=== PATIENT | male | born 1955 | race Caucasian/White ===

== ENCOUNTER 2019-01-28 01:44 | Outpatient (CLI) | payer OTHER ==
--- NOTE | 2019-01-28 12:24 | RAD ---
CHEST 2 VIEWS: Date: 01/28/19 HISTORY: Preoperative evaluation. COMPARISON: 11/16/14. FINDINGS: Slight blunting in the left costophrenic angle, which appears old. Heart size is within normal limits . Biapical pleural thickening. No confluent pneumonia, overt edema, or pleural effusion. IMPRESSION: No acute intrathoracic disease. Left costophrenic angle blunting and scarring with mild scattered chr onic changes. No acute intrathoracic disease. POS: C
--- NOTE | 2019-01-29 13:53 | EKG ---
Test Reason : Blood Pressure : / mmHG Vent. Rate : 062 BPM Atrial Rate : 062 BPM P-R Int : 202 ms QRS Dur : 076 ms QT Int : 404 ms P-R-T Axes : 049 051 052 degrees QTc Int : 410 ms Normal sinus rhythm Normal ECG When compared with ECG of 19-APR-2001 12:34, No significant change was found Confirmed by DR. Bryn SANDERS ([id number]) on 01/29/2019 1:53:17 PM Referred By: ADILENE Confirmed By:DR. Bryn SANDERS
== END 2019-01-28 01:45 | disposition home or self-care (01) ==
LOC: LABBT 01:44
PROVIDERS: ATTEND Orthopaedic Surgery
DX: Z01.818 Encounter for other preprocedural examination (principal); M16.7 Other unilateral secondary osteoarthritis of hip
CPT/HCPCS: 71046; 93005; 93010

== ENCOUNTER 2019-01-28 08:00 | Inpatient (IN) | payer OTHER ==
[2019-01-28 08:40] VITALS: BMI 25.8
[2019-01-28 09:54] LABS: Bilirubin Negative (Negative); Blood, Urine Negative (Negative); Clarity CLEAR (Clear); Glucose, Urine (Dipstick) Negative (Negative); Leukocyte Negative (Negative); Nitrite Negative (Negative); Protein, Urine (Dipstick) Negative (Neg-Trace); Specific Gravity, Urine 1.015 (1.002-1.036); Urobilinogen 0.2 mg/dL (0.2-1.0)
[2019-01-28 09:57] LABS: Bacteria/HPF None Seen HPF (None Seen); Hyaline Casts/LPF 0-3 HYALINE CAST LPF (0-3 Hyaline); Pathc Cast-AUWi Flag 0.13 (0-2.49); Squamous Epithelial None Seen HPF (0-3); WBC/HPF 0-3 HPF (0-3)
[2019-01-28 10:08] LABS: Prothrombin Time 13.3 SEC (12.0-14.7)
[2019-01-28 10:10] LABS: #Basophils 0.2 thou/uL (0.0-0.2); #Eosinphils 0.4 thou/uL (0.0-0.7); #Lymphocytes 3.3 thou/uL (1.20-3.40); #Monocytes 0.8 thou/uL (0.11-0.59); %Basophils 1.7 % (0.0-1.0); %Eosinophils 3.8 % (0.0-10.0); %Lymphocytes 34.2 % (21.0-51.0); %Monocytes 8.3 % (0.0-10.0); Hemoglobin 15.2 g/dL (14.0-18.0); Mean Corpuscular HGB CONC 36.2 g/dL (32.0-36.0); Mean Corpuscular Volume 91.3 fL (78.0-98.0); Mean Platelet Volume 7.2 fL (7.4-10.4); Platelet Count 213 thou/uL (130-400); RBC Distribution Width 11.8 % (11.5-14.5); Red Blood Cell (RBC) Count 4.61 mill/uL (4.70-6.10); White Blood Cell (WBC) Count 9.6 thou/uL (4.8-10.8)
[2019-01-28 10:11] LABS: Anion Gap 13 mmol/L (10-20); BUN (Urea Nitrogen) 15 mg/dL (8.4-25.7); Calc. Creatinine Clearance 0 mL/min (70-130); Calcium 9.5 mg/dL (7.8-10.44); Carbon Dioxide 21 mmol/L (23-31); Chloride 108 mmol/L (98-107); Estimated GFR-MDRD Greater than 90; Glucose 96 mg/dL (80-115); Potassium 4.3 mmol/L (3.5-5.1); Sodium 138 mmol/L (136-145)
[2019-02-01] MEDS ORDERED: Tranexamic Acid 1,000 MG/10 ML VIAL ONE ×2 (05:59→09:33)
[2019-02-01] MEDS ORDERED: Sodium Chloride 0.9% 100 ML ONE ×2 (05:59→09:35)
[2019-02-01] MEDS ORDERED: Propofol 1,000 MG/100 ML VIAL IV ONE (06:18)
[2019-02-01] MEDS ORDERED: Lidocaine 1% (PF) 30 ML VIAL ONE (06:28)
[2019-02-01] MEDS ORDERED: Fentanyl 100 MCG/2 ML VIAL ONE ×2 (06:28→07:09)
[2019-02-01] MEDS ORDERED: Midazolam HCl 2 mg/2 ml Vial ONE (06:28)
[2019-02-01] MEDS ORDERED: Bupivacaine HCl 0.5%/Epinephrine 1:200,000/PF 30 ml Vial ONE (07:09)
[2019-02-01] MEDS ORDERED: diphenhydrAMINE 25 MG CAP PO PRN ×2 (07:15→09:39)
[2019-02-01] MEDS ORDERED: Naloxone HCl 0.4 mg/ml Vial IV PRN (07:15)
[2019-02-01] MEDS ORDERED: Zolpidem Tartrate 5 MG TAB PO PRN ×2 (07:15→09:39)
[2019-02-01] MEDS ORDERED: diphenhydrAMINE 50 MG/ML VIAL IM PRN (07:15)
[2019-02-01] MEDS ORDERED: Bupivacaine 0.25% 10 ML VIAL EPIDURAL PRN (07:15)
[2019-02-01] MEDS ORDERED: HYDROcodone/Acetaminophen 5/325 mg Tablet PO PRN (07:15)
[2019-02-01] MEDS ORDERED: diphenhydrAMINE 50 MG/ML VIAL IVP PRN (07:15)
[2019-02-01] MEDS ORDERED: Ondansetron PF 4 MG/2 ML Vial IVP PRN ×2 (07:15→09:39)
[2019-02-01] MEDS ORDERED: Promethazine HCl 25 MG SUPP PR PRN (07:15)
[2019-02-01] MEDS ORDERED: traMADol HCl 50 MG TAB PO PRN ×3 (07:15→09:39)
[2019-02-01] MEDS ORDERED: Promethazine HCl 25 MG/ML VIAL IM PRN ×3 (07:15→09:39)
[2019-02-01] MEDS ORDERED: Naloxone HCl 0.4 mg/ml Vial IVP PRN (07:15)
[2019-02-01] MEDS ORDERED: Hydrocerin (Eucerin) Cream 120 gm Jar TOP PRN (07:15)
[2019-02-01] MEDS ORDERED: PHENYLEPHRINE-NS 100 MCG/ML 10 ML SYRINGE ONE ×2 (07:29→11:27)
[2019-02-01] MEDS ORDERED: Ondansetron HCl/PF 4 MG/2 ML Vial IVP PRN (07:51)
[2019-02-01] MEDS ORDERED: Promethazine HCl 25 MG/ML VIAL SLOW IVP PRN (07:51)
[2019-02-01] MEDS ORDERED: Tranexamic Acid 1,000 MG in Sodium Chloride 0.9% 100 ML IVPB SCH (08:45)
[2019-02-01] MEDS ORDERED: Fentanyl 100 MCG/2 ML VIAL SLOW IVP PRN ×2 (09:39)
[2019-02-01] MEDS ORDERED: HYDROcodone/Acetaminophen 10/325 mg Tablet PO PRN ×2 (09:39)
[2019-02-01] MEDS ORDERED: Acetaminophen 325 MG TAB PO PRN (09:39)
--- NOTE | 2019-02-01 10:00 | RAD ---
RADIOGRAPH LEFT HIP 2 VIEWS: DATE: 02/01/2019. HISTORY: A 63-year-old male with osteoarthrosis of the left hip status post recent surgery. FINDINGS: There is a metallic acetabular cup. There is a metallic femoral head and neck component with stem th at reaches the proximal femoral diaphysis. There is subcutaneous emphysema indicating that the surge ry was recent. IMPRESSION: Recently status post total left hip replacement arthroplasty. POS: [facility]
[2019-02-01] MEDS ORDERED: Aspirin 81 mg Enteric Coated Tablet PO SCH (10:45)
[2019-02-01] MEDS ORDERED: traZODone HCl 50 MG TAB PO PRN (11:18)
[2019-02-01] MEDS ORDERED: Ondansetron PF 4 MG/2 ML Vial ONE (11:27)
[2019-02-01] MEDS ORDERED: PROPOFOL 200 MG/20 ML VIAL ONE (11:27)
--- NOTE | 2019-02-01 11:52 | CON ---
DATE OF CONSULTATION: Consultation to Dr. Nieves. PRIMARY CARE PROVIDER: [facility]. HISTORY OF PRESENT ILLNESS: The patient is status post left total hip replacement. Postoperatively, he denies chest pain, shortness of breath, fever, chills, nausea, or vomiting. PAST MEDICAL HISTORY: Pertinent for hypertension, dyslipidemia, osteoarthritis, anxiety, depression. CURRENT MEDICATIONS: 1. Aspirin 81 mg a day. 2. Ibuprofen 800 mg p.o. q.8 hours p.r.n. 3. Lisinopril 40 mg twice a day. 4. Lipitor 40 mg a day. 5. Trazodone 100 mg at bedtime. 6. Depakote 750 mg p.o. at bedtime. ALLERGIES: TO CODEINE, APPARENTLY CAUSES ANAPHYLAXIS. PAST SURGICAL HISTORY: He has had 9 surgeries on his left knee. The final one was a left total knee replacement. 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 He does not know what the cause of the blockage was, but he states it was not malignant that he knows of. He had a plate put in his left arm after an accident. He has had right hand surgery. He has had bilateral cataract surgery and retinal surgery. FAMILY HISTORY: Grandfather had coronary artery disease. Father of cancer of the brain. Mother of a broken heart 6 years after her . She was miserable as a according to him. 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 Full code status. , next of kin. Smokes half to 1 pack a day. Nonalcohol drinker. REVIEW OF SYSTEMS: GENERAL: No headaches, dizziness or fainting. EYES: No double vision, blurred vision, or flashing light. EARS, NOSE, AND THROAT. He has hearing loss. Wears hearing aids. Has tinnitus. No nose bleeds. No trouble swallowing. CARDIAC: No chest pain, orthopnea, or paroxysmal nocturnal dyspnea. RESPIRATION: No cough, wheezing, or asthma. GASTROINTESTINAL: No nausea, vomiting, abdominal pain, diarrhea, or constipation. MUSCULOSKELETAL: He has diffuse osteoarthritis with aches and pains, but no hot swollen joints. No swelling in his legs. No muscle pain. NEUROLOGICAL: He has had a stroke with some left-sided residual weakness. PSYCHIATRIC: He has anxiety, depression, takes Depakote and trazodone for same. SKIN: Bruises easily. No rash. HEME/LYMPH: No tender or swollen lymph nodes in axilla, inguinal, or cervical area. PHYSICAL EXAMINATION: GENERAL: Alert, cooperative, pleasant gentleman. VITAL SIGNS: Blood pressure 137/66, pulse 62, respirations 20, temperature 97.3. HEAD, EYES, EARS, NOSE, AND THROAT: Revealed pupils are equal, round, and reactive to light with implants. Extraocular movements are intact. Sclerae are white. Tympanic membranes are clear. Nose is clear. He is edentulous in his upper mouth and has dentures. NECK: No jugular venous distention. No adenopathy or thyromegaly. CHEST: Clear to auscultation and percussion. HEART: Had a regular rate and rhythm. First and second heart sounds clear. There are no appreciated murmurs or gallops. ABDOMEN: Soft. Bowel sounds are normal. There is no hepatosplenomegaly. No mass. No rebound. No bruits. EXTREMITIES: Reveal no cyanosis, clubbing, or edema. PULSES: Carotid, radial, femoral, and dorsalis pedis pulses intact. SKIN: Warm and dry with some small ecchymoses on both forearms. HEME/LYMPH: No tender or swollen lymph nodes in the axilla, inguinal, cervical area. NEUROLOGICAL: Cranial nerves 2 through 12 are intact. Deep tendon reflexes are grossly symmetric. Strength is grossly symmetric. He has poor [id number] on his left arm compared to the right. IMAGING STUDIES: His EKG, regular sinus rhythm, normal, done on 01/28/2019, reviewed by me. Chest x-ray, 01/28/2019, no cardiomegaly, CHF, or infiltrate. He does have flattening of the left hemidiaphragm, reviewed by me. LABORATORY DATA: Done 01/28/2018 as an outpatient; CBC, white count 9.6, hemoglobin 15.2, platelet count 213,000. INR is 1.0. Basic metabolic profile is normal, except for chloride of 108 and CO2 of 21. ADMITTING DIAGNOSES: Hypertension, dyslipidemia anxiety and depression, tobacco abuse, status post left total hip replacement. PLAN: Agree with continuing home medicines. The patient is stable at the present time. We will follow with you. Thank you for the consult. Job ID: [id number]
[2019-02-01] MEDS: Ketorolac Tromethamine 30 MG/ML VIAL IVP SCH ×3 (12:19→22:28)
[2019-02-01] MEDS ORDERED: Ketorolac Tromethamine 30 MG/ML VIAL IVP SCH (14:00)
[2019-02-01] MEDS: CEFAZOLIN 2 GM in Premix Bag 1 BAG IVPB SCH ×2 (14:55→21:34)
--- NOTE | 2019-02-01 15:12 | OP ---
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 PROCEDURE PERFORMED: Left total hip arthroplasty. SPINNER CAP FRAME: Darius Jamison PA-C ANESTHESIOLOGIST: Fuentes Mercado. ANESTHESIA: The patient received epidural, TIVA. ESTIMATED BLOOD LOSS: 150 mL. TOURNIQUET TIME: None. IMPLANTS: A Gerald size 52 trident PSL cup with a 36, 10-degree X3 trident poly, a 2.5 Accolade TMZF, and a 36 mm ceramic head. ANTIBIOTICS: Vancomycin 1 g, TXA 1 g, and Ancef 2 g. COMPLICATIONS: None. HISTORY OF PRESENT ILLNESS: Mr. Mathis is a 63-year-old male with multiple years of left hip pain. The patient had a previous history of left total knee arthroplasty. I discussed with the patient the risks and benefits of left total hip arthroplasty to include pain, scar, bleeding, infection, damage to vital structures, decreased range of motion, strength, nonunion, malunion, fracture above or below the stem, blood clot, loss of life or limb. The patient understood the risks and benefits of the procedure and elected to proceed. DESCRIPTION OF PROCEDURE: Time-out was performed designating the patient's left lower extremity as the operative site based on site, consents, and marking. After time-out, the patient's left lower extremity was prepped and draped in sterile fashion, in lateral position with bony prominences well padded. We made an incision down through skin, down the IT band, split the IT band, came down to the gluteus medius and minimus, T'd and excised our capsule, exposed our head. We cut the head, had a short neck cut because the patient has a short neck as well as a dysplastic head, removed the head. We made a recut to get visualization. We then reamed sequentially using fovea as a starting point up to a 52, had a good firm fitted cup. We impacted our [address], well impacted, well fit. We then placed the PSL. We then placed our X3 poly, 6 mm, 10 degree lip. We impacted in position. We then moved back to the neck. The patient was very tight, made a very tight flare of his metaphysis type A. We broached up to 2.5. We placed finally a 2.5, which is otherwise in good length and rotation. No impingement. We placed 2.5. We placed the ceramic and placed our final implant with a ceramic head, reduced in place, ensured that there was no fracture lines, washed, closed the gluteus minimus, gluteus medius with #1, IT band with #1 Quill, 2-0, and glue. The patient will be weightbearing as tolerated, to be followed in-house. Job ID: [id number]
[2019-02-01] MEDS ORDERED: Vancomycin HCl 1 GM in Premix Bag 1 BAG IVPB SCH (18:00)
[2019-02-01] MEDS: Aspirin 81 mg Enteric Coated Tablet PO SCH (20:02)
[2019-02-01] MEDS: Atorvastatin Calcium 40 MG TAB PO SCH (20:02)
[2019-02-01] MEDS: Divalproex Sodium 250 MG (DR) TAB PO SCH (20:03)
[2019-02-01] MEDS: Divalproex Sodium DR 500 MG TAB PO SCH (20:03)
[2019-02-01] MEDS: Lisinopril 20 MG TAB PO SCH (20:04)
[2019-02-01] MEDS: HYDROcodone/Acetaminophen 5/325 mg Tablet PO PRN (22:25)
[2019-02-02] MEDS: fentaNYL Citrate/PF 500 MCG, Bupivacaine 10 ML in Sodium Chloride 0.9% 80 ML EPIDURAL SCH ×2 (03:13→19:59)
[2019-02-02 05:49] LABS: Mean Corpuscular HGB CONC 34.3 g/dL (32.0-36.0); Mean Corpuscular Volume 93.1 fL (78.0-98.0); Mean Platelet Volume 7.2 fL (7.4-10.4); Platelet Count 186 thou/uL (130-400); RBC Distribution Width 11.8 % (11.5-14.5); Red Blood Cell (RBC) Count 3.74 mill/uL (4.70-6.10); White Blood Cell (WBC) Count 10.2 thou/uL (4.8-10.8)
[2019-02-02] MEDS: Ketorolac Tromethamine 30 MG/ML VIAL IVP SCH ×4 (06:23→23:35)
[2019-02-02] MEDS: Multivitamin W/ Minerals 1 TAB PO SCH (08:52)
[2019-02-02] MEDS: Ferrous Gluconate 324 MG TAB PO SCH ×2 (08:52→18:57)
[2019-02-02] MEDS: Senokot S 8.6-50 MG TAB PO SCH ×2 (08:52→20:00)
[2019-02-02] MEDS: Lisinopril 20 MG TAB PO SCH ×2 (08:52→20:06)
[2019-02-02] MEDS: Aspirin 81 mg Enteric Coated Tablet PO SCH ×2 (08:53→20:00)
[2019-02-02] MEDS: HYDROcodone/Acetaminophen 5/325 mg Tablet PO PRN ×3 (08:53→23:37)
[2019-02-02] MEDS ORDERED: Polyethylene Glycol 3350 17 GM Packet PO PRN (10:19)
[2019-02-02] MEDS: Divalproex Sodium DR 500 MG TAB PO SCH (19:59)
[2019-02-02] MEDS: Atorvastatin Calcium 40 MG TAB PO SCH (20:00)
[2019-02-02] MEDS: Divalproex Sodium 250 MG (DR) TAB PO SCH (20:00)
[2019-02-03] MEDS: Ketorolac Tromethamine 30 MG/ML VIAL IVP SCH (05:53)
[2019-02-03 06:12] LABS: Hemoglobin 11.4 g/dL (14.0-18.0); Mean Corpuscular HGB CONC 33.4 g/dL (32.0-36.0); Mean Corpuscular Hemoglobin 31.5 pg (27.0-31.0); Mean Corpuscular Volume 94.4 fL (78.0-98.0); Mean Platelet Volume 7.3 fL (7.4-10.4); Platelet Count 181 thou/uL (130-400); Red Blood Cell (RBC) Count 3.62 mill/uL (4.70-6.10); White Blood Cell (WBC) Count 11.7 thou/uL (4.8-10.8)
[2019-02-03] MEDS: Multivitamin W/ Minerals 1 TAB PO SCH (08:53)
[2019-02-03] MEDS: Aspirin 81 mg Enteric Coated Tablet PO SCH (08:53)
[2019-02-03] MEDS: Senokot S 8.6-50 MG TAB PO SCH (08:53)
[2019-02-03] MEDS: Lisinopril 20 MG TAB PO SCH (08:53)
[2019-02-03] MEDS: HYDROcodone/Acetaminophen 5/325 mg Tablet PO PRN (08:54)
[2019-02-03] MEDS: Ferrous Gluconate 324 MG TAB PO SCH (08:57)
[2019-02-03] MEDS ORDERED: HYDROcodone/Acetaminophen 10/325 mg Tablet PO PRN ×2 (09:17)
--- NOTE | 2019-02-03 10:05 | HP ---
HISTORY OF PRESENT ILLNESS: Mr. Mathis is a pleasant 63-year-old male, who presented with severe pain of greater than six years left hip pain and history of a left knee total knee arthroplasty in 2005. The patient has therapy, injections and had not brought relief. 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 He had a trip planned which he has returned from. The patient desires to get back to work as quick as possible. The patient's pain is localized in his groin, be 10/10 at times. PAST MEDICAL HISTORY: Anemia, seasonal allergies, high cholesterol, chronic pain, depression, headaches, high blood pressure, and stroke. PAST SURGICAL HISTORY: Left knee in 1986, left knee is 1983 unspecified, left lung surgery unspecified. MEDICATIONS: The patient's medications include; 1. Aspirin. 2. Atorvastatin. 3. Depakote. 4. Ibuprofen. 5. Lisinopril. 6. Trazodone. ALLERGIES: THE PATIENT'S ALLERGIES INCLUDE CODEINE, WHICH CAUSES SWELLING. NO ANAPHYLAXIS PER REPORT. SOCIAL HISTORY: The patient denies alcohol. Occasional smoker. No current drug use. 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 PHYSICAL EXAMINATION: VITAL SIGNS: The patient's vital signs, afebrile. GENERAL: Alert and oriented, in no acute distress, resting comfortably in bed. EXTREMITIES: The patient is neurovascularly intact to left lower extremity. Pain with internal and external rotation of hip and shortening. 2+ DP and PT pulses. LABORATORY DATA: The patient is B positive. Creatinine is 0.79. Negative UA. 15 and 42 for his H and H. INR 1. 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 secondary osteoarthritis. ASSESSMENT AND PLAN: The patient will be taken to surgery for left total hip arthroplasty. I discussed with the patient risks and benefits of surgery, pain, scar, bleeding, infection, damage to vital structures, decrease in his strength, shortening, rotational deformity, need for further surgeries, loss of life or limb. The patient understood the risks and benefits and elected to proceed. He will be taken back to the operating room. With the family history of malignant hyperthermia, the patient will be treated accordingly. Job ID: [id number] [facility]
--- NOTE | 2019-02-03 11:25 | PDOC.PN ---
- Subjective Encounter Start Date: 02/03/19 Encounter Start Time: 11:23 Patient seen and examined for med mngt. No CP/SOB. Pain controlled. No new complaints. No overnight events - Objective MAR Reviewed: Yes Vital Signs & Weight: Vital Signs (12 hours) Temp Pulse Resp BP BP Pulse Ox 02/03/19 08:53 110/70 02/03/19 08:20 98.5 F 96 14 112/72 91 L 02/03/19 04:07 98.3 F 74 18 116/70 97 02/03/19 00:27 99 F 106 H 16 106/67 95 02/02/19 23:30 100.3 F H 113 H 16 104/66 92 L Weight Admit Weight 165 lb Weight 165 lb I&O: 02/02/19 02/03/19 02/04/19 06:59 06:59 06:59 Intake Total 2110 Output Total 150 2375 Balance -150 -265 Result Diagrams: 02/03/19 04:53 01/28/19 09:31 EKG Reviewed by me: Yes (SR) Phys Exam - Physical Examination Constitutional: NAD Respiratory: no wheezing, no rhonchi Cardiovascular: RRR, no rub Gastrointestinal: soft, non-tender, positive bowel sounds Musculoskeletal: no edema Neurological: moves all 4 limbs Dx/Plan - Plan DVT proph w/SCDs IMPRESSION: HTN HLD Anxiety Depression - mild - stable Tobacco dep Codeine allergy DJD PLAN: Cont Lisinopril Cont Statins Counselled to quit smoking Cont other meds as below Review of Systems - Review of Systems Respiratory: negative: Cough, Dry, Shortness of Breath, Hemoptysis, SOB with Excertion, Pleuritic Pain, Sputum, Wheezing Cardiovascular: negative: chest pain, palpitations, orthopnea, paroxysmal nocturnal dyspnea, edema, light headedness, other - Medications/Allergies Allergies/Adverse Reactions: Allergies Allergy/AdvReac Type Severity Reaction Status Date / Time codeine Allergy Severe Verified 02/01/19 17:39 Medications: Current Medications Acetaminophen (Tylenol) 650 mg PO Q4H PRN PRN Reason: Headache/Fever or Pain Hydrocodone Bitart/Acetaminophen (Mobridge 10/325) 1 tab PO Q4H PRN PRN Reason: Pain (2-4) Hydrocodone Bitart/Acetaminophen (Mobridge 10/325) 2 tab PO Q4H PRN PRN Reason: Pain (5-10) Aspirin (Ecotrin) 81 mg PO BID [facility] Last Admin: 02/03/19 08:53 Dose: 81 mg Atorvastatin Calcium (Lipitor) 40 mg PO [facility] Last Admin: 02/02/19 20:00 Dose: 40 mg Diphenhydramine HCl (Benadryl) 25 mg PO Q3H PRN PRN Reason: Itching Diphenhydramine HCl (Benadryl) 25 mg IM Q3H PRN PRN Reason: Itching Diphenhydramine HCl (Benadryl) 25 mg IVP Q3H PRN PRN Reason: Itching Divalproex Sodium (Depakote) 500 mg PO [facility] Last Admin: 02/02/19 19:59 Dose: 500 mg Divalproex Sodium (Depakote) 250 mg PO [facility] Last Admin: 02/02/19 20:00 Dose: 250 mg Emollient Cream (Hydrocerin Cream) 0 gm TOP PRN PRN PRN Reason: Itching [facility] Last Admin: 02/03/19 08:57 Dose: 324 mg Iron/Minerals/Multivitamins (Theragran M) 1 tab PO DAILY [facility] Last Admin: 02/03/19 08:53 Dose: 1 tab Lisinopril (Zestril) 40 mg PO BID [facility] Last Admin: 02/03/19 08:53 Dose: 40 mg Miscellaneous Information (Communication Order-Pharmacy) 1 each FS ASDIR [facility] Naloxone HCl (Narcan) 0.2 mg IV Q5MIN PRN PRN Reason: RR <=8 OR OBTUNDED/UNAROUSABLE Naloxone HCl (Narcan) 0.1 mg IVP Q15MIN PRN PRN Reason: URINARY RETENTION Ondansetron HCl (Zofran) 4 mg IVP Q6H PRN PRN Reason: Nausea/Vomiting Last Admin: 02/02/19 15:37 Dose: 4 mg Polyethylene Glycol (Miralax) 17 gm PO DAILY PRN PRN Reason: Constipation Promethazine HCl (Phenergan Suppository) 25 mg TX Q4H PRN PRN Reason: Nausea/Vomiting Promethazine HCl (Phenergan) 12.5 mg IM Q4H PRN PRN Reason: Nausea/Vomiting Last Admin: 02/03/19 06:06 Dose: 12.5 mg Senna/Docusate Sodium (Senokot S) 2 tab PO BID [facility] Last Admin: 02/03/19 08:53 Dose: 2 tab Sodium Chloride (Flush - Normal Saline) 10 ml IVF PRN PRN PRN Reason: Saline Flush Trazodone HCl (Desyrel) 100 mg PO HSPRN PRN PRN Reason: Restlessness Last Admin: 02/01/19 20:09 Dose: 100 mg Zolpidem Tartrate (Ambien) 5 mg PO HSPRN PRN PRN Reason: Insomnia
[2019-02-03 12:33] VITALS: BP 124/64; TEMP 98.3
== END 2019-02-03 17:28 | disposition home health service (06) | DRG 470 ==
LOC: SURG A 02-01 05:28 → SJJU 02-01 10:00
PROVIDERS: ADMIT Orthopaedic Surgery; ATTEND Orthopaedic Surgery
PROC: 0SRB04A Replacement of Left Hip Joint with Ceramic on Polyethylene Synthetic Substitute, Uncemented, Open Approach (ICD-10-PCS; principal; 2019-02-01)
DX: M16.32 Unilateral osteoarthritis resulting from hip dysplasia, left hip (principal); D64.9 Anemia, unspecified; J30.2 Other seasonal allergic rhinitis; E78.00 Pure hypercholesterolemia, unspecified; F32.9 Major depressive disorder, single episode, unspecified; F41.9 Anxiety disorder, unspecified; I10 Essential (primary) hypertension; F17.200 Nicotine dependence, unspecified, uncomplicated; Z96.652 Presence of left artificial knee joint; Z79.82 Long term (current) use of aspirin; Z86.73 Personal history of transient ischemic attack (TIA), and cerebral infarction without residual deficits; Z88.5 Allergy status to narcotic agent; Z90.2 Acquired absence of lung [part of]
CPT/HCPCS: 36415; 80048; 81001; 85025; 85027; 85610; 86850; 86900; 86901; J0670; J0690; J1885; J2001; J2250; J2405; J2550; J2704; J3010; J3370; J3490